=== PATIENT | male | born 1985 | race Caucasian/White ===

== ENCOUNTER 2018-01-13 21:21 | Emergency (ER) | payer MEDICAID, OTHER ==
[~2018-01-13] VITALS: Ht 177.8 cm; Wt 86.2 kg
[2018-01-13 21:37] VITALS: BP 140/81
[2018-01-13] MEDS ORDERED: AZITHROMYCIN 250 MG TABLET PO ONE (22:30)
[2018-01-13] MEDS ORDERED: CEFTRIAXONE 500 MG VIAL IM ONE (22:30)
[2018-01-13] MEDS ORDERED: AZITHROMYCIN 250 MG TABLET ONE (22:47)
[2018-01-13] MEDS ORDERED: CEFTRIAXONE 500 MG VIAL ONE (22:47)
--- NOTE | 2018-01-13 23:01 | NUR ---
Patient discharged to home in stable condition. Written and verbal after care instructions given. Patient verbalizes understanding of instruction.
[2018-01-13 23:04] LABS: APPEARANCE,URINE CLEAR (CLEAR); BILIRUBIN,URINE NEGATIVE (NEGATIVE); BLOOD, URINE NEGATIVE Ery/uL (NEGATIVE); COLOR,URINE YELLOW (YELLOW); KETONES,URINE NEGATIVE (NEGATIVE); LEUKOCYTE ESTERASE ,URINE NEGATIVE (NEGATIVE); NITRITE, URINE NEGATIVE (NEGATIVE); PROTEIN,URINE NEGATIVE (NEGATIVE); UGLUCOSE NEGATIVE (NEGATIVE); UROBILINOGEN,URINE 0.2 EU/dL (0.2)
== END 2018-01-13 23:02 | disposition home or self-care (01) ==
LOC: ER 21:29
DX: N48.89 Other specified disorders of penis (principal); R10.2 Pelvic and perineal pain
CPT/HCPCS: 81000-TC; 87491; 87591; A4606; J0696; Z7610

== ENCOUNTER 2022-10-19 04:08 | Emergency (ER) | payer MEDICAID, OTHER ==
[~2022-10-19] VITALS: Ht 180.3 cm; Wt 97.5 kg
[2022-10-19 04:28] VITALS: BP 141/79
== END 2022-10-19 04:45 ==
LOC: ER 04:14
DX: S00.83XA Contusion of other part of head, initial encounter (principal); Z60.2 Problems related to living alone; Y04.2XXA Assault by strike against or bumped into by another person, initial encounter; Y93.89 Activity, other specified; Y92.89 Other specified places as the place of occurrence of the external cause; Y99.8 Other external cause status